=== PATIENT | female | born 1975 | race Caucasian/White ===

== ENCOUNTER → 2021-11-10 11:23 | Outpatient (CLI) | payer OTHER, SELFPAY ==
--- NOTE | 2021-11-10 11:33 | XR_ITS ---
FINAL REPORT CLINICAL HISTORY: .covid testing, cough FINDINGS: SINGLE VIEW CHEST The heart size is normal. The mediastinum is within normal limits. There is mild left lung basilar opacity. The right lung is clear. The bony thorax is intact. IMPRESSION: Left lung basilar opacity which may represent atelectasis or pneumonia. Reviewed, Interpreted and Dictated by Yonas Rizo III, MD Transcribed by Baldo Garces Authenticated by Yonas Rizo III, MD on 11/10/2021 01:50:26 PM [facility]
[2021-11-10 12:09] LABS: Adenovirus,PCR Not Detected (NotDetected); Bordetella Pertussis Not Detected (NotDetected); Chlamydophila Pneumoniae, PCR Not Detected (NotDetected); Coronavirus 19, PCR Not Detected (NotDetected); Coronavirus 229E Not Detected (NotDetected); Coronavirus NL63 Not Detected (NotDetected); Coronavirus OC43 Not Detected (NotDetected); Coronovirus HKU1,PCR Not Detected (NotDetected); Human Metapneumovirus Not Detected (NotDetected); Influenza A, PCR Not Detected (NotDetected); Influenza AH1, 2009 Not Detected (NotDetected); Influenza AH1, PCR Not Detected (NotDetected); Influenza AH3,PCR Not Detected (NotDetected); Influenza B, PCR Not Detected (NotDetected); Mycoplasma Pneumoniae, PCR Not Detected (NotDetected); Parainfluenza 1, PCR Not Detected (NotDetected); Parainfluenza 2, PCR Not Detected (NotDetected); Parainfluenza 3, PCR Not Detected (NotDetected); Respiratory Syncytial Virus Not Detected (NotDetected); Rhinovirus/Enterovirus Not Detected (NotDetected)
[2021-11-10 12:21] LABS: Strep Scrn Group A (Rapid) Negative (Negative)
[2021-11-10 12:46] LABS: Basophils # 0.1 K/mm3 (0-0.2); Basophils % 2.2 % (0.1-2.0); Eosinophils # 0.1 K/mm3 (0.0-0.4); Hematocrit 45.9 % (37.0-47.0); Hemoglobin 14.3 g/dL (12.2-16.2); Mean Corpuscular HGB Conc 31.1 g/dL (31.8-35.4); Mean Corpuscular Hemoglobin 29.6 pg (27.0-31.2); Mean Corpuscular Volume 95.2 fl (81-99); Monocytes # 0.3 K/mm3 (0.1-1.0); Monocytes % 4.3 % (1.7-9.3); Neutrophils # 3.7 K/mm3 (1.8-7.8); Neutrophils % 59.5 % (37.0-80.0); Platelet Count 345 K/mm3 (142-424); Red Blood Count 4.82 M/mm3 (4.20-5.40); Red Cell Distribution Width 14.7 % (11.5-17.5); White Blood Count 6.3 K/mm3 (4.8-10.8)
[2021-11-10 13:45] LABS: Parainfluenza 4, PCR Detected (NotDetected)
== END ==
PROVIDERS: PCP Nurse Practitioner; Visit Provider Nurse Practitioner
DX: Z20.822 Contact with and (suspected) exposure to COVID-19 (principal); B34.8 Other viral infections of unspecified site
CPT/HCPCS: 36415; 71045; 85025; 87430; 87581; 87632; 87798; C9803; U0003; U0005

== ENCOUNTER → 2022-09-14 09:33 | Outpatient (CLI) | payer OTHER, SELFPAY ==
[2022-09-14 17:28] LABS: Creatinine,Urine Random 64 mg/dL (Not Estab.)
[2022-09-14 17:31] LABS: Basophils % 0.5 % (0.1-2.0); Eosinophils # 0.1 K/mm3 (0.0-0.4); Eosinophils % 1.1 % (0.1-12.0); Hematocrit 45.4 % (37.0-47.0); Hemoglobin 14.4 g/dL (12.2-16.2); Lymphocytes # 2.3 K/mm3 (0.7-4.5); Lymphocytes % 27.7 % (10-50); Mean Corpuscular HGB Conc 31.8 g/dL (31.8-35.4); Mean Corpuscular Hemoglobin 29.9 pg (27.0-31.2); Mean Platelet Volume 8.3 fl (7.4-10.4); Microalbumin/Creatinine Ratio 13.1; Monocytes # 0.2 K/mm3 (0.1-1.0); Monocytes % 2.9 % (1.7-9.3); Neutrophils # 5.6 K/mm3 (1.8-7.8); Neutrophils % 67.8 % (37.0-80.0); Platelet Count 438 K/mm3 (142-424); Red Blood Count 4.83 M/mm3 (4.20-5.40); Red Cell Distribution Width 14.4 % (11.5-17.5); White Blood Count 8.3 K/mm3 (4.8-10.8)
[2022-09-14 17:43] LABS: Alanine Aminotransferase 17 U/L (12-78); Albumin Level 4.3 g/dl (3.5-5.0); Albumin/Globulin Ratio 1.7 (1.1-1.8); Alkaline Phosphatase 107 U/L (38-126); Aspartate Amino Transferase 22 U/L (14-36); Bilirubin,Total 0.5 mg/dl (0.2-1.3); Blood Urea Nitrogen 24 mg/dl (7-17); Calcium 9.5 mg/dl (8.4-10.2); Carbon Dioxide 24 mmol/L (22.0-30.0); Chloride 102 mmol/L (98-107); Chol/HDL Ratio 2.8 (1-3.5); Cholesterol 241 mg/dl (140-200); Estimated Glomerular Filt Rate 67 ml/min (>60); GFR (African American) 81 ML/MIN (>60); Globulin 2.6 g/dL (1.3-3.2); Glucose 191 mg/dl (74-100); HDL Cholesterol 87 mg/dl (40-60); Sodium 135 mmol/L (136-145); Total Protein,Serum 6.9 g/dl (6.3-8.2); Triglycerides 199 mg/dl (30-150); VLDL Cholesterol 40 mg/dL (0-40)
[2022-09-14 17:54] LABS: Direct LDL Cholesterol 118.64 mg/dL (100-129)
[2022-09-14 18:04] LABS: 25-OH Vitamin D, Total 27.8 ng/mL (30-100)
[2022-09-14 18:16] LABS: Thyroid Stimulating Hormone 0.06 uIU/mL (0.465-4.68)
[2022-09-14 18:35] LABS: Vitamin B12 620 pg/mL (239-931)
[2022-09-14 18:44] LABS: Anion Gap 13.7 mEq/L (5-15); Potassium 4.7 mmoL/L (3.5-5.1)
== END ==
PROVIDERS: PCP Nurse Practitioner; Visit Provider Nurse Practitioner
DX: E11.9 Type 2 diabetes mellitus without complications (principal); E78.5 Hyperlipidemia, unspecified; I10 Essential (primary) hypertension; E55.9 Vitamin D deficiency, unspecified; Z79.84 Long term (current) use of oral hypoglycemic drugs
CPT/HCPCS: 80053; 80061; 82043; 82306; 82570; 82607; 83036; 84443; 85025

== ENCOUNTER → 2022-09-27 12:27 | Outpatient (CLI) | payer OTHER, SELFPAY ==
--- NOTE | 2022-09-27 12:27 | US_ITS ---
FINAL REPORT CLINICAL HISTORY: low TSH FINDINGS: Limited sonographic images of the thyroid were obtained. The right lobe of the thyroid measures 5.0 x 1.2 x 1.0 cm. The left lobe of the thyroid measures 4.0 x 1.0 x 1.0 cm. The isthmus measures 0.21 cm. No mass or nodules are identified. IMPRESSION: Unremarkable thyroid ultrasound. Reviewed, Interpreted and Dictated by Yonas Rizo III, MD Transcribed by Mckenna Pozo Authenticated and [facility]
== END ==
PROVIDERS: PCP Nurse Practitioner; Visit Provider Nurse Practitioner
DX: R79.89 Other specified abnormal findings of blood chemistry (principal)
CPT/HCPCS: 76536

== ENCOUNTER → 2022-12-13 18:34 | Outpatient (CLI) | payer OTHER, SELFPAY ==
[2022-12-13 18:23] LABS: Alanine Aminotransferase 17 U/L (12-78); Albumin Level 3.8 g/dl (3.5-5.0); Anion Gap 11.2 mEq/L (5-15); Aspartate Amino Transferase 24 U/L (14-36); Bilirubin,Total 0.5 mg/dl (0.2-1.3); Blood Urea Nitrogen 21 mg/dl (7-17); Calcium 8.7 mg/dl (8.4-10.2); Carbon Dioxide 24 mmol/L (22.0-30.0); Chloride 103 mmol/L (98-107); Estimated Glomerular Filt Rate 67 ml/min (>60); GFR (African American) 81 ML/MIN (>60); Globulin 2.4 g/dL (1.3-3.2); Glucose 114 mg/dl (74-100); Potassium 5.2 mmoL/L (3.5-5.1); Sodium 133 mmol/L (136-145); Total Protein,Serum 6.2 g/dl (6.3-8.2)
[2022-12-13 18:24] LABS: Albumin/Globulin Ratio 1.6 (1.1-1.8); Alkaline Phosphatase 68 U/L (38-126); Chol/HDL Ratio 2.9 (1-3.5); Cholesterol 212 mg/dl (140-200); HDL Cholesterol 73 mg/dl (40-60); Triglycerides 125 mg/dl (30-150); VLDL Cholesterol 25 mg/dL (0-40)
[2022-12-13 18:30] LABS: Creatinine,Urine Random 66 mg/dL (Not Estab.)
[2022-12-13 18:34] LABS: Direct LDL Cholesterol 125.29 mg/dL (100-129); Microalbumin < 6.000 mg/L (0-16.7)
[2022-12-13 18:40] LABS: Free T4 (Free Thyroxine) 0.95 ng/dl (0.78-2.19)
[2022-12-13 18:54] LABS: Thyroid Stimulating Hormone 0.18 uIU/mL (0.465-4.68)
== END ==
PROVIDERS: PCP Nurse Practitioner; Visit Provider Nurse Practitioner
DX: E11.9 Type 2 diabetes mellitus without complications (principal); E55.9 Vitamin D deficiency, unspecified; E78.5 Hyperlipidemia, unspecified; I10 Essential (primary) hypertension; R79.89 Other specified abnormal findings of blood chemistry; Z79.84 Long term (current) use of oral hypoglycemic drugs
CPT/HCPCS: 80053; 80061; 82043; 82570; 84439; 84443; 84481

== ENCOUNTER → 2023-03-15 23:15 | Outpatient (CLI) | payer OTHER, SELFPAY ==
[2023-03-15 18:03] LABS: Alanine Aminotransferase 28 U/L (12-78); Albumin Level 3.9 g/dl (3.5-5.0); Albumin/Globulin Ratio 1.4 (1.1-1.8); Alkaline Phosphatase 81 U/L (38-126); Anion Gap 15.9 mEq/L (5-15); Aspartate Amino Transferase 30 U/L (14-36); Bilirubin,Total 0.6 mg/dl (0.2-1.3); Blood Urea Nitrogen 17 mg/dl (7-17); Calcium 8.7 mg/dl (8.4-10.2); Carbon Dioxide 25 mmol/L (22.0-30.0); Chloride 102 mmol/L (98-107); Chol/HDL Ratio 2.9 (1-3.5); Cholesterol 222 mg/dl (140-200); Estimated Glomerular Filt Rate 77 ml/min (>60); GFR (African American) 93 ML/MIN (>60); Globulin 2.7 g/dL (1.3-3.2); Glucose 105 mg/dl (74-100); HDL Cholesterol 77 mg/dl (40-60); Potassium 4.9 mmoL/L (3.5-5.1); Sodium 138 mmol/L (136-145); Total Protein,Serum 6.6 g/dl (6.3-8.2); Triglycerides 108 mg/dl (30-150); VLDL Cholesterol 22 mg/dL (0-40)
[2023-03-15 18:06] LABS: Hemoglobin A1C 6.1 % (4.0-6.0)
[2023-03-15 18:15] LABS: Direct LDL Cholesterol 118.32 mg/dL (100-129)
[2023-03-15 18:20] LABS: Free T4 (Free Thyroxine) 1.07 ng/dl (0.78-2.19)
[2023-03-15 18:21] LABS: 25-OH Vitamin D, Total 66.3 ng/mL (30-100)
[2023-03-15 18:34] LABS: Thyroid Stimulating Hormone 0.03 uIU/mL (0.465-4.68)
[2023-03-17 12:10] LABS: Triiodothyronine (T3) Free 2.4 pg/mL (2.0-4.4)
== END ==
PROVIDERS: PCP Nurse Practitioner; Visit Provider Nurse Practitioner
DX: E11.9 Type 2 diabetes mellitus without complications (principal); E55.9 Vitamin D deficiency, unspecified; E78.5 Hyperlipidemia, unspecified; I10 Essential (primary) hypertension; R79.89 Other specified abnormal findings of blood chemistry; Z79.84 Long term (current) use of oral hypoglycemic drugs
CPT/HCPCS: 80053; 80061; 82306; 83036; 84439; 84443; 84481

== ENCOUNTER 2024-02-02 18:00 | Outpatient (CLI) | payer OTHER, SELFPAY ==
[2024-02-02 17:46] LABS: Coronavirus 19, PCR Not Detected (NotDetected); Influenza A, PCR Not Detected (NotDetected); Influenza B, PCR Not Detected (NotDetected)
== END 2024-02-02 23:59 | disposition home or self-care (01) ==
LOC: LAB.DROPOF 02-03 13:10
PROVIDERS: PCP Nurse Practitioner; Visit Provider Nurse Practitioner
DX: J06.9 Acute upper respiratory infection, unspecified (principal); J02.9 Acute pharyngitis, unspecified; R09.81 Nasal congestion; R09.89 Other specified symptoms and signs involving the circulatory and respiratory systems; R06.2 Wheezing; R05.9 Cough, unspecified
CPT/HCPCS: 87636

== ENCOUNTER 2024-06-11 12:58 | Outpatient (CLI) | payer OTHER, SELFPAY ==
--- NOTE | 2024-06-11 12:59 | CT_ITS ---
FINAL REPORT TECHNIQUE: Axial CT images of the abdomen and pelvis were obtained before and after the administration of IV contrast. Oral contrast was administered.This study was performed with techniques to keep radiation doses as low as reasonably achievable (ALARA). Individualized dose reduction techniques using automated exposure control or adjustment of mA and/or kV according to the patient''s size were employed. CLINICAL HISTORY: abdominal pain, gastroenteritis FINDINGS: Abdomen: The lung bases are clear. The heart is normal in size. The liver has an unremarkable appearance, without evidence of mass or biliary duct dilatation. There is a large gallstone with marked gallbladder wall thickening and adjacent stranding consistent with acute cholecystitis. There is pericholecystic fluid. Stranding is seen adjacent to the hepatic flexure of the colon, favor secondary inflammation. The spleen is unremarkable. No adrenal masses present. The pancreas has an unremarkable appearance. There is moderate left renal scarring. The kidneys otherwise enhance normally. The aorta is normal in caliber. There is no free fluid or adenopathy. No mass or abnormal fluid collection is seen. There is a small hiatal hernia. Precontrast images demonstrate no evidence of nephrolithiasis. Pelvis: The appendix is partially visualized and appears normal. The urinary bladder is unremarkable. There is a small amount of pelvic free fluid which may be reactive. There is no evidence of mass or adenopathy. There is no evidence of bowel obstruction. Postoperative changes are noted of the right femur. IMPRESSION: Findings consistent with acute cholecystitis. Reviewed, Interpreted and Dictated by Yonas Rizo III, MD Transcribed by Sara Delgado Authenticated and [facility]
[2024-06-11 13:03] LABS: Bordetella Pertussis Not Detected (NotDetected); Chlamydophila Pneumoniae, PCR Not Detected (NotDetected); Coronavirus 19, PCR Not Detected (NotDetected); Coronavirus 229E Not Detected (NotDetected); Coronavirus NL63 Not Detected (NotDetected); Coronavirus OC43 Not Detected (NotDetected); Coronovirus HKU1,PCR Not Detected (NotDetected); Human Metapneumovirus Not Detected (NotDetected); Influenza A, PCR Not Detected (NotDetected); Influenza AH1, 2009 Not Detected (NotDetected); Influenza AH1, PCR Not Detected (NotDetected); Influenza AH3,PCR Not Detected (NotDetected); Influenza B, PCR Not Detected (NotDetected); Mycoplasma Pneumoniae, PCR Not Detected (NotDetected); Parainfluenza 1, PCR Not Detected (NotDetected); Parainfluenza 2, PCR Not Detected (NotDetected); Parainfluenza 3, PCR Not Detected (NotDetected); Parainfluenza 4, PCR Not Detected (NotDetected); Respiratory Syncytial Virus Not Detected (NotDetected); Rhinovirus/Enterovirus Not Detected (NotDetected)
[2024-06-11 13:37] LABS: Basophils # 0.1 K/mm3 (0-0.2); Basophils % 0.4 % (0.1-2.0); Hematocrit 43.6 % (37.0-47.0); Hemoglobin 13.9 g/dL (12.2-16.2); Lymphocytes % 11.9 % (10-50); Mean Corpuscular HGB Conc 31.8 g/dL (31.8-35.4); Mean Corpuscular Hemoglobin 30.8 pg (27.0-31.2); Mean Corpuscular Volume 96.7 fl (81-99); Mean Platelet Volume 7.3 fl (7.4-10.4); Monocytes # 0.5 K/mm3 (0.1-1.0); Monocytes % 2.9 % (1.7-9.3); Neutrophils % 84.8 % (37.0-80.0); Platelet Count 426 K/mm3 (142-424); Red Blood Count 4.51 M/mm3 (4.20-5.40); Red Cell Distribution Width 13.8 % (11.5-17.5); White Blood Count 16.5 K/mm3 (4.8-10.8)
[2024-06-11 13:45] LABS: MANUAL DIFFERENTIAL MANUAL DIFFERENTIAL (MANUAL DIFF)
[2024-06-11 13:46] LABS: Alanine Aminotransferase 92 U/L (12-78); Albumin Level 4.2 g/dl (3.5-5.0); Albumin/Globulin Ratio 1.3 (1.1-1.8); Alkaline Phosphatase 78 U/L (38-126); Amylase 99 U/L (30-110); Anion Gap 11.9 mEq/L (5-15); Aspartate Amino Transferase 51 U/L (14-36); Bilirubin,Total 0.8 mg/dl (0.2-1.3); Blood Urea Nitrogen 12 mg/dl (7-17); Calcium 8.8 mg/dl (8.4-10.2); Carbon Dioxide 26 mmol/L (22.0-30.0); Chloride 105 mmol/L (98-107); Estimated Glomerular Filt Rate 53 ml/min (>60); GFR (African American) 64 ML/MIN (>60); Globulin 3.2 g/dL (1.3-3.2); Glucose 161 mg/dl (74-100); Lipase 106 U/L (23-300); Potassium 3.9 mmoL/L (3.5-5.1); Sodium 139 mmol/L (136-145); Total Protein,Serum 7.4 g/dl (6.3-8.2)
[2024-06-11 13:52] LABS: C-Reactive Protein 59.1 mg/L (0-4)
[2024-06-11] MEDS: SODIUM CHLORIDE 0.9% 10ML SYR (RAD ONLY) 10 ML IV (14:03)
[2024-06-11] MEDS: IOPAMIDOL-370 (76%);100ML BOTTLE 75 ML IV (14:04)
[2024-06-11 14:15] LABS: Hypochromasia 1+; Lymphocytes % 17 % (10-50); Monocytes % 4 % (2-9); Neutrophils % 79 % (42-76); Polychromasia 1+; Total Cells Counted 100
[2024-06-11 14:17] LABS: Platelet Estimate Slight Increase
[2024-06-11 14:51] LABS: Erythrocyte Sedimentation Rate 19 mm/hr (0-20)
[2024-06-13 12:34] LABS: Adenovirus,PCR Not Detected (NotDetected)
== END 2024-06-11 23:59 | disposition home or self-care (01) ==
LOC: RAD 12:59
PROVIDERS: PCP Nurse Practitioner; Visit Provider Nurse Practitioner
DX: K52.9 Noninfective gastroenteritis and colitis, unspecified (principal); R10.9 Unspecified abdominal pain; J06.9 Acute upper respiratory infection, unspecified
CPT/HCPCS: 36415; 74178; 80053; 82150; 83690; 85007; 85025; 85027; 85651; 86140; 87265; 87486; 87581; 87632; 87635; Q9967

== ENCOUNTER 2024-06-11 16:41 | Observation (INO) | payer OTHER, SELFPAY ==
[2024-06-11] VITALS (8 sets, daily range): BP systolic 135–157; BP diastolic 77–86; PULSE 55–80; RESP 16–18; TEMP 36.6–36.9; O2SAT 95–100; BMI 23.2; BMI 22.9
--- NOTE | 2024-06-11 17:14 | ED_ITS ---
<Statement entered by Steve Bui MD - 06/11/24 21:51> I was consulted by the JASON, and we discussed the complexity of the problems being addressed. I approved the treatment and management plan for this patient's care in the emergency department, thus performing a substantive portion of the medical decision making. Steve Bui MD Discharge Plan Disposition Patient Disposition: Admitted Condition: Fair Clinical Impressions Clinical Impression: Acute calculous cholecystitis Sepsis Qualifiers: Sepsis type: sepsis due to unspecified organism Sepsis acute organ dysfunction status: without acute organ dysfunction Qualified Code(s): A41.9 - Sepsis, unspecified organism Discharge ED Provider: Steve Bui General Adult HPI General Chief complaint: Abdominal Pain Stated complaint: sent by DR Tidwell- gall bladder issues Time Seen by Provider: 06/11/24 16:52 Mode of Arrival: Ambulatory Source of Information: Patient Limitations: No Limitations Description of Symptoms (Recalled from ER Triage Doc. by RN): pt sent from pcp office for further evaluation. pts states that she had blood work and ct scan today for pcp office. reports pt was called back and told to come to ED for evaluation. History of Present Illness HPI narrative: Patient presents for right upper quadrant abdominal pain. Patient has been having right upper quadrant abdominal pain and anorexia since Tuesday. She went to her PCP today who ordered a CT scan and labs. Labs showed an elevated white count and transaminitis but no elevated bilirubin and CT scan showed acute cholecystitis with stone in the gallbladder but no biliary ductal dilatation. Patient subsequently was sent to the ER for further evaluation and care Related Data Home Medications ?Medication ?Instructions ?Recorded ?Confirmed methylphenidate HCl 10 mg tablet 10 mg PO TID 09/14/22 06/11/24 norethindrone 1 mg-ethinyl 1 tab PO DAILY 09/14/22 06/11/24 estradiol 20 mcg (21)-iron 75 mg (7) tablet (June FE 10/22 (28)) cholecalciferol (vitamin D3) 125 125 mcg PO DAILY 06/11/24 06/11/24 mcg (5,000 unit) tablet empagliflozin 12.5 mg-metformin ER 2 tab PO DAILY 06/11/24 06/11/24 1,000 mg tablet,extended rel 24 hr (Synjardy XR) losartan 25 mg tablet 25 mg PO DAILY 06/11/24 06/11/24 ondansetron 4 mg disintegrating 4 mg PO QID 06/11/24 06/11/24 tablet sulfacetamide sodium 10 % eye drops 1 drp Eye-Both QID 06/11/24 06/11/24 tirzepatide 5 mg/0.5 mL 5 mg SQ WEEKLY 06/11/24 06/11/24 subcutaneous pen injector (Sandra) Previous Rx's ?Medication ?Instructions ?Recorded hyoscyamine sulfate 0.125 mg tablet 0.125 mg PO QID PRN diarrhea or 06/11/24 abdominal cramping #30 tabs promethazine 25 mg tablet 25 mg PO Q6H PRN nausea and 06/11/24 vomiting #20 tabs Allergies Allergy/AdvReac Type Severity Reaction Status Date / Time No Known Allergies Allergy Verified 06/11/24 09:33 [facility] Disclaimer: The information contained in this section may have been updated after the patient was seen, as this information can be updated by other users. Medical History Abdominal pain Acute gastroenteritis Vitamin D deficiency Low TSH level Narcolepsy Hyperlipidemia Essential hypertension Type 2 diabetes mellitus without complications Family History Other Diabetes Social History (Updated 06/11/24 @ 18:41 by Patrizia Warner RN) Smoking Status: Never smoker alcohol intake: never substance use type: denies use current occupational status: employed Travel in the last 8 weeks: None ROS Obtained: Yes Systems reviewed as appropriate & no additional complaints except as documented Physical Exam General General appearance: alert and in no apparent distress Respiratory Respiratory exam: Present normal lung sounds bilaterally Cardiovascular Cardiovascular exam: Present regular rate Neurological Exam Neurological exam: Present alert and oriented X3 Medical Decision Making Medical Records Medical records reviewed: Yes I reviewed the patient's medical records. Lester Inquiry Pt receiving controlled substance: No Vital Signs: 06/11/24 16:42 06/11/24 16:50 06/11/24 17:01 Temperature 98.4 F Temperature Source Oral Pulse Rate 63 62 Pulse Rate [Left Radial] 63 Respiratory Rate 16 Blood Pressure 149/86 H 157/83 H Blood Pressure [Right Arm] 149/86 H Blood Pressure Mean [Right Arm] 107 Blood Pressure Source [Right Arm] 02 Sat by Pulse Oximetry 97 100 100 Oxygen Delivery Method Room Air Room Air Room Air 06/11/24 17:30 06/11/24 18:38 06/11/24 18:54 Temperature 97.9 F Temperature Source Oral Pulse Rate 61 Pulse Rate [Left Radial] 80 Respiratory Rate 18 Blood Pressure 156/85 H Blood Pressure [Right Arm] 138/81 Blood Pressure Mean [Right Arm] 100 Blood Pressure Source [Right Arm] Automatic Cuff 02 Sat by Pulse Oximetry 100 100 Oxygen Delivery Method Room Air Room Air Room Air Lab Data Lab results reviewed: Yes I reviewed the patient's lab results. Lab Results 06/11/24 16:52: WBC 15.8 H, RBC 4.81, Hgb 14.7, Hct 46.5, MCV 96.8, MCH 30.6, M CHC 31.6 L, RDW 13.9, Plt Count 394, MPV 7.7, Neut % (Auto) 85.5 H, Lymph % (Auto) 11.3, [place] % (Auto) 2.8, Eos % (Auto) 0.1, Baso % (Auto) 0.2, Neut # (Auto) 13.6 H, Lymph # (Auto) 1.8, [place] # (Auto) 0.4, Eos # (Auto) 0.0, Baso # (Auto) 0.0, Sodium 137, Potassium 3.7, Chloride 102, Carbon Dioxide 26, Anion Gap 12.7, BUN 12, Creatinine 1.10 H, Estimated Creat Clear 53, Estimated GFR 53 L, Est GFR ( Amer) 64, Glucose 149 H, Calcium 8.8, Total Bilirubin 0.8, A ST 61 H, ALT 113 H, Alkaline Phosphatase 74, Total Protein 8.1, Albumin 4.3, G lobulin 3.8 H, Albumin/Globulin Ratio 1.1, Lipase 68, Procalcitonin 0.084 06/11/24 16:52 06/11/24 16:52 Orders (Tests/Meds): ED MEDICATIONS Generic Name Dose Route Start Last Admin Trade Name Freq PRN Reason Stop Dose Admin Acetaminophen 1,000 mg 06/11/24 18:11 Acetaminophen 325mg Tab PO 07/11/24 18:10 Q6HP PRN Fever or Mild Pain (1-3) Hydrocodone Bitart/Acetaminophen 1 tab 06/11/24 18:11 Hydrocodone/Apap 5/325 Mg Tablet PO 07/11/24 18:10 Q4HP PRN Moderate Pain (4-6) Hydromorphone HCl 2 mg 06/11/24 18:11 Hydromorphone 2mg/Ml Syringe IV 07/11/24 18:10 Q4HP PRN Severe Pain (7-10) Sodium Chloride 1,000 mls @ 125 mls/hr 06/11/24 18:15 06/11/24 18:48 Sod Chlor 0.9% 1000ml Bag IV 07/11/24 18:14 125 mls/hr .Q8H ALEXIA Administration Piperacillin Sod/Tazobactam 50 mls @ 100 mls/hr 06/11/24 18:30 06/11/24 18:35 Sod 3.375 gm/ Sodium Chloride IV 06/21/24 18:29 Not Given Q6H ALEXIA Ondansetron HCl 4 mg 06/11/24 18:11 Ondansetron 4mg/2ml Vial IV 07/11/24 18:10 Q8HP PRN Nausea Pantoprazole Sodium 40 mg 06/11/24 18:30 06/11/24 18:48 Pantoprazole 40mg Tablet PO 07/11/24 18:29 40 mg DAILY ALEXIA Administration Sodium Chloride 10 ml 06/11/24 18:11 Sodium Chloride 0.9% 10ml Flush Syringe IV 07/11/24 18:10 NEEDED PRN Maintain IV Site Discontinued Medications Generic Name Dose Route Start Last Admin Trade Name Freq PRN Reason Stop Dose Admin Acetaminophen 1,000 mg 06/11/24 17:22 06/11/24 17:38 Acetaminophen 1,000mg/100ml Vial IV 06/11/24 17:23 1,000 mg ONCE ONE Administration Lactated Ringer's 1,000 mls @ 999 mls/hr 06/11/24 17:22 06/11/24 17:38 Lactated Ringer's 1000 Ml Bag IV 06/11/24 18:22 999 mls/hr .Q1H1M ONE Administration Piperacillin Sod/Tazobactam 50 mls @ 100 mls/hr 06/11/24 17:30 06/11/24 18:10 Sod 3.375 gm/ Sodium Chloride IV 06/11/24 17:59 100 mls/hr ONCE ONE Administration Ketorolac Tromethamine 15 mg 06/11/24 17:22 06/11/24 17:38 Ketorolac 30mg/Ml Vial IV 06/11/24 17:23 15 mg ONCE ONE Administration Ondansetron HCl 4 mg 06/11/24 17:22 06/11/24 17:38 Ondansetron 4mg/2ml Vial IV 06/11/24 17:23 4 mg ONCE ONE Administration ORDERS Category Date Time Status CBC w/Auto Diff [Complete Blood Count Auto Diff] Stat Lab 06/11/24 16:52 Completed CMP [Comprehensive Metabolic Panel] Stat Lab 06/11/24 16:52 Completed Lipase Stat Lab 06/11/24 16:52 Completed Procalcitonin Stat Lab 06/11/24 16:52 Completed Blood Culture Stat Micro 06/11/24 18:05 Received Medical Decision Narrative: In summary patient is a 48-year-old female who presents to the emergency department for evaluation of moderate quadrant abdominal pain. Patient is hemodynamically stable upon arrival, afebrile. Physical exam is tender to palpation in the right upper quadrant without rebound or guarding or rigidity. Bowel sounds normoactive.. Differential diagnosis includes cute cholecystitis versus acalculous cholecystitis versus biliary ductal dilatation etc. Initial workup will be conducted with hematologic labs blood cultures.. Initial interventions include crystalloid bolus Zosyn Toradol Tylenol Zofran. Initial workup reviewed by me confirms sepsis without septic shock, transaminitis without hyperbilirubinemia and a normal lipase, and her CT scan read earlier shows calculus cholecystitis without biliary ductal dilatation. Given this I had interactive discussion of outpatient management with hospital medicine and she will be admitted for further evaluation and care. Critical Care Critical Care Time Critical Care Time: No
--- NOTE | 2024-06-11 17:34 | PC.NURSE ---
HS aware of admission
[2024-06-11] MEDS: KETOROLAC 30MG/ML VIAL 15 MG IV (17:38)
[2024-06-11] MEDS: ACETAMINOPHEN 1,000MG/100ML VIAL 1000 MG IV (17:38)
[2024-06-11] MEDS: ONDANSETRON 4MG/2ML VIAL 4 MG IV (17:38)
[2024-06-11] MEDS: LACTATED RINGERS 1000ML 1,000 ML 999 ML IV (17:38)
[2024-06-11 17:41] LABS: Basophils % 0.2 % (0.1-2.0); Eosinophils % 0.1 % (0.1-12.0); Hematocrit 46.5 % (37.0-47.0); Hemoglobin 14.7 g/dL (12.2-16.2); Lymphocytes # 1.8 K/mm3 (0.7-4.5); Lymphocytes % 11.3 % (10-50); Mean Corpuscular HGB Conc 31.6 g/dL (31.8-35.4); Mean Corpuscular Hemoglobin 30.6 pg (27.0-31.2); Mean Corpuscular Volume 96.8 fl (81-99); Mean Platelet Volume 7.7 fl (7.4-10.4); Monocytes # 0.4 K/mm3 (0.1-1.0); Monocytes % 2.8 % (1.7-9.3); Neutrophils # 13.6 K/mm3 (1.8-7.8); Neutrophils % 85.5 % (37.0-80.0); Platelet Count 394 K/mm3 (142-424); Red Blood Count 4.81 M/mm3 (4.20-5.40); Red Cell Distribution Width 13.9 % (11.5-17.5); White Blood Count 15.8 K/mm3 (4.8-10.8)
[2024-06-11 17:47] LABS: Alanine Aminotransferase 113 U/L (12-78); Albumin Level 4.3 g/dl (3.5-5.0); Albumin/Globulin Ratio 1.1 (1.1-1.8); Alkaline Phosphatase 74 U/L (38-126); Anion Gap 12.7 mEq/L (5-15); Aspartate Amino Transferase 61 U/L (14-36); Bilirubin,Total 0.8 mg/dl (0.2-1.3); Blood Urea Nitrogen 12 mg/dl (7-17); Calcium 8.8 mg/dl (8.4-10.2); Carbon Dioxide 26 mmol/L (22.0-30.0); Chloride 102 mmol/L (98-107); Creatinine Clearance Estimated 53 mL/min (50-200); Estimated Glomerular Filt Rate 53 ml/min (>60); GFR (African American) 64 ML/MIN (>60); Globulin 3.8 g/dL (1.3-3.2); Glucose 149 mg/dl (74-100); Lipase 68 U/L (23-300); Potassium 3.7 mmoL/L (3.5-5.1); Sodium 137 mmol/L (136-145); Total Protein,Serum 8.1 g/dl (6.3-8.2)
--- NOTE | 2024-06-11 17:53 | PC.NURSE ---
report called to bienvenido on second floor
[2024-06-11 18:03] LABS: Procalcitonin 0.084 ng/mL (0.0-2.0)
[2024-06-11] MEDS: PIPERCILLIN/TAZO 3.375 GM in 0.9 % SODIUM CHLORIDE 50 ML IV (18:10)
--- NOTE | 2024-06-11 18:19 | EXP.HP ---
History of Present Illness *Admission Date: 06/11/24 *Reason for visit:: Abdominal pain *History of present illness: This is a 48-year-old female that presents to [facility] emergency department with concerns of abdominal pain. She was evaluated by her primary care doctor earlier this morning for abdominal pain since Tuesday not improving with home care and recent urgent treatment center evaluation. She reports nausea and vomiting with decreased p.o. intake. She started having diarrhea characterizes brown and watery yesterday. She has identified no associated fever, chills, rashes, confusion, hematemesis, melena or hematochezia. She characterizes the pain as sharp and piercing to her back. It is rated as greater than 7 on a 1-10 pain scale. She reports no prior history of symptomatology. In the ED her CBC identified a leukocytosis and her AST and ALT were marginally elevated. A CT scan of the abdomen with contrast identified a large gallstone with gallbladder thickening and adjacent stranding with pericholecystic fluid consistent with acute cholecystitis. [facility] Medical History (Updated 06/11/24 @ 17:30 by DENISE Wright) Abdominal pain Acute gastroenteritis Vitamin D deficiency Low TSH level Narcolepsy Hyperlipidemia Essential hypertension Type 2 diabetes mellitus without complications Family History Other Diabetes Social History Smoking Status: Never smoker alcohol intake: never substance use type: denies use current occupational status: employed Travel in the last 8 weeks: None Review of Systems Review of Systems Review of systems:: pertinent systems reviewed and negative unless documented below Meds Home Medications and Allergies Home Medications ?Medication ?Instructions ?Recorded ?Confirmed ?Type methylphenidate HCl 10 mg tablet 10 mg PO TID 09/14/22 06/11/24 History norethindrone 1 mg-ethinyl 1 tab PO DAILY 09/14/22 06/11/24 History estradiol 20 mcg (21)-iron 75 mg (7) tablet (10/22 ()) cholecalciferol (vitamin D3) 125 See Rx Instructions .Route 05/04/24 06/11/24 Rx mcg (5,000 unit) tablet .COMPLEX #90 tabs empagliflozin 12.5 mg-metformin ER See Rx Instructions .Route 05/04/24 06/11/24 Rx 1,000 mg tablet,extended rel 24 hr .COMPLEX #60 tabs (Synjardy XR) losartan 25 mg tablet See Rx Instructions .Route 05/14/24 06/11/24 Rx .COMPLEX #90 tabs hyoscyamine sulfate 0.125 mg tablet 0.125 mg PO QID PRN diarrhea or 06/11/24 06/11/24 Rx abdominal cramping #30 tabs ondansetron 4 mg disintegrating mg PO PRN 06/11/24 06/11/24 History tablet promethazine 25 mg tablet 25 mg PO Q6H PRN nausea and 06/11/24 06/11/24 Rx vomiting #20 tabs sulfacetamide sodium 10 % eye drops drp Eye-Both 06/11/24 06/11/24 History New Prescriptions to Start Prescriptions: Allergies Allergy/AdvReac Type Severity Reaction Status Date / Time No Known Allergies Allergy Verified 06/11/24 09:33 Exam Data for Last 24 hours Vital signs and Labs for Last 24 Hours: Temp Pulse Resp BP Pulse Ox O2 Del Method 98.4 F 61 16 156/85 H 100 Room Air 06/11/24 16:42 06/11/24 17:30 06/11/24 16:42 06/11/24 17:30 06/11/24 17:30 06/11/24 17:30 Laboratory Results - last 24 hr 06/11/24 16:52: WBC 15.8 H, RBC 4.81, Hgb 14.7, Hct 46.5, MCV 96.8, MCH 30.6, MCHC 31.6 L, RDW 13.9, Plt Count 394, MPV 7.7, Neut % (Auto) 85.5 H, Lymph % (Auto) 11.3, [place] % (Auto) 2.8, Eos % (Auto) 0.1, Baso % (Auto) 0.2, Neut # (Auto) 13.6 H, Lymph # (Auto) 1.8, [place] # (Auto) 0.4, Eos # (Auto) 0.0, Baso # (Auto) 0.0 I & O for Last 24 hours: Intake & Output 06/08/24 06/09/24 06/10/24 06/11/24 23:59 23:59 23:59 23:59 Weight 53.977 kg Constitutional Constitutional: no acute distress and cooperative *Routine HEENT Exam Head: Present normocephalic and atraumatic Eye: Present EOMI and PERRL ENT: Present mucous membranes moist *Routine Neck Exam Neck: Present trachea midline; Absent JVD or lymphadenopathy *Routine Respiratory Exam Respiratory: Present CTA bilaterally, normal respiratory effort and symmetric chest movement *Routine Cardiovascular Exam Cardiovascular: Present RRR *Routine Abdominal Exam Abdominal: Present soft, normoactive bowel sounds and tenderness; Absent distended, rebound or guarding *Routine Rectal Exam Rectal:: deferred *Routine Genitalia Exam Genitalia:: deferred *Routine Extremities Exam Extremities: Present full ROM, pulses intact and normal capillary refill; Absent edema *Routine Skin Exam Skin: Present intact and warm; Absent rash *Routine Neurological Exam Neurological: Present alert, oriented X3, moving all extremities, vision grossly intact, hearing grossly intact and normal speech; Absent sensory deficit or motor deficit Routine Psychiatric Exam Psychiatric: Present normal affect, normal thought process, cooperative, good insight and good judgment Assessment and Plan *Assessment and plan (1) Acute calculous cholecystitis: Status: Acute Category: Medical Code(s): K80.00 - Calculus of gallbladder with acute cholecystitis without obstruction Plan 48-year-old female that presents to the ED with right upper quadrant abdominal pain and imaging identifies concerns with acute cholecystitis. Problems addressed as follows: Acute calculus cholecystitis General Surgery consultation N.p.o. past midnight IV fluid resuscitation Trending labs and inflammatory markers Antiemetic therapy Pain control Parenterally administered controlled substance for comfort care IV Zosyn The length of stay for this patient will be 2 midnights or greater due to above diagnoses.
--- NOTE | 2024-06-11 18:30 | PC.NURSE ---
arrived to floor by w/c from ED
[2024-06-11] MEDS: 0.9 % SODIUM CHLORIDE 1000ML 1,000 ML 125 ML IV (18:48)
[2024-06-11] MEDS: PANTOPRAZOLE 40MG TABLET 40 MG PO (18:48)
--- NOTE | 2024-06-11 18:49 | PC.NURSE ---
PER FELIX HOLD OFF ON FSBG TILL PT COMES BACK FROM SURGERY TOMORROW.
[2024-06-11 18:50] LABS: Activated Partial Thrombo Time 30.8 seconds (22.8-30.6); INR 0.94 (0.9-1.1); Prothrombin Time 10.6 seconds (10.1-12.5)
[2024-06-11 19:22] LABS: HCG,Quantitative < 2 mIU/ml (0-5.42)
[2024-06-12] VITALS (21 sets, daily range): BP systolic 111–152; BP diastolic 65–92; PULSE 60–106; RESP 14–20; TEMP 36.4–43; O2SAT 97–100; BMI 23.1
[2024-06-12] MEDS: PIPERCILLIN/TAZO 3.375 GM in 0.9 % SODIUM CHLORIDE 50 ML IV ×4 (00:03→23:56)
[2024-06-12] MEDS: 0.9 % SODIUM CHLORIDE 1000ML 1,000 ML 125 ML IV ×2 (03:43→17:49)
--- NOTE | 2024-06-12 05:25 | PC.NURSE ---
Patient is alert and oriented x4. Patient was observed to have eyes closed, respirations even and unlabored on room air, and no apparent distress throughout the night. Patient has not had any complaints of pain, nausea, or any other abnormalities this shift. Patient's lung sounds were clear, S1/S2 heart sounds could be heard, and bowel sounds were active upon auscultation. Patient's helped her with a shower earlier this shift. Patient verbalized understanding of NPO after midnight, and remained NPO for general surgery consult expected for this morning. Patient was given antibiotics per MAR this shift and currently has normal saline 0.9% running at 125 mL/hr. Patient has been able to ambulate to the bathroom on her own to void and tolerates it well. At this time, patient is resting supine in bed with her at bedside. Patient does not have any complaints at this time. No acute changes noted. Call light within reach.
[2024-06-12 06:15] LABS: Basophils % 0.4 % (0.1-2.0); Eosinophils # 0.1 K/mm3 (0.0-0.4); Eosinophils % 1.1 % (0.1-12.0); Hematocrit 36.9 % (37.0-47.0); Lymphocytes % 19.5 % (10-50); Mean Corpuscular HGB Conc 31.5 g/dL (31.8-35.4); Mean Corpuscular Hemoglobin 30.6 pg (27.0-31.2); Mean Corpuscular Volume 97.2 fl (81-99); Mean Platelet Volume 8.1 fl (7.4-10.4); Monocytes # 0.4 K/mm3 (0.1-1.0); Monocytes % 4.1 % (1.7-9.3); Neutrophils # 7.8 K/mm3 (1.8-7.8); Neutrophils % 74.8 % (37.0-80.0); Platelet Count 292 K/mm3 (142-424); Red Cell Distribution Width 14.1 % (11.5-17.5); White Blood Count 10.4 K/mm3 (4.8-10.8)
[2024-06-12 06:21] LABS: Anion Gap 8.7 mEq/L (5-15); Blood Urea Nitrogen 12 mg/dl (7-17); Calcium 7.2 mg/dl (8.4-10.2); Carbon Dioxide 21 mmol/L (22.0-30.0); Chloride 110 mmol/L (98-107); Creatinine Clearance Estimated 48 mL/min (50-200); Estimated Glomerular Filt Rate 48 ml/min (>60); GFR (African American) 58 ML/MIN (>60); Glucose 88 mg/dl (74-100); Potassium 3.7 mmoL/L (3.5-5.1); Sodium 136 mmol/L (136-145)
[2024-06-12 06:26] LABS: Hemoglobin 11.6 g/dL (12.2-16.2)
--- NOTE | 2024-06-12 06:42 | ECG_ITS ---
APPROVED REPORT Exam: Resting ECG HR:62 bpm ECG Measurements Heart Rate 62 AXES [place] 174 P 50 QRSd 81 QRS 50 QT 425 T 33 QTc 430 Conclusion SINUS RHYTHM NORMAL ECG UNCONFIRMED REPORT Electronically signed by : Dick Cassidy MD 06/13/2024 08:25:34
--- NOTE | 2024-06-12 07:27 | P.CONS_ITS ---
History of Present Illness *Admission Date: 06/11/24 *Reason for visit:: Acute cholecystitis *History of present illness: This is a 48-year-old female seen in consultation from the primary service for evaluation regarding acute calculus cholecystitis. Please see HPI forwarded from admission H&P below. Forwarded from admission H&P: This is a 48-year-old female that presents to [facility] emergency department with concerns of abdominal pain. She was evaluated by her primary care doctor earlier this morning for abdominal pain since Tuesday not improving with home care and recent urgent treatment center evaluation. She reports nausea and vomiting with decreased p.o. intake. She started having diarrhea characterizes brown and watery yesterday. She has identified no associated fever, chills, rashes, confusion, hematemesis, melena or hematochezia. She characterizes the pain as sharp and piercing to her back. It is rated as greater than 7 on a 1-10 pain scale. She reports no prior history of symptomatology. In the ED her CBC identified a leukocytosis and her AST and ALT were marginally elevated. A CT scan of the abdomen with contrast identified a large gallstone with gallbladder thickening and adjacent stranding with pericholecystic fluid consistent with acute cholecystitis. [facility] Disclaimer: The information contained in this section may have been updated after the patient was seen, as this information can be updated by other users. Medical History Abdominal pain Acute gastroenteritis Vitamin D deficiency Low TSH level Narcolepsy Hyperlipidemia Essential hypertension Type 2 diabetes mellitus without complications Family History Other Diabetes Social History (Updated 06/11/24 @ 18:41 by Patrizia Warner, BRETT) Smoking Status: Never smoker alcohol intake: never substance use type: denies use current occupational status: employed Travel in the last 8 weeks: None Meds Home Medications and Allergies Home Medications ?Medication ?Instructions ?Recorded ?Confirmed ?Type methylphenidate HCl 10 mg tablet 10 mg PO TID 09/14/22 06/11/24 History norethindrone 1 mg-ethinyl 1 tab PO DAILY 09/14/22 06/11/24 History estradiol 20 mcg (21)-iron 75 mg (7) tablet (Junel FE 10/22 (28)) cholecalciferol (vitamin D3) 125 125 mcg PO DAILY 06/11/24 06/11/24 History mcg (5,000 unit) tablet empagliflozin 12.5 mg-metformin ER 2 tab PO DAILY 06/11/24 06/11/24 History 1,000 mg tablet,extended rel 24 hr (Synjardy XR) hyoscyamine sulfate 0.125 mg tablet 0.125 mg PO QID PRN diarrhea or 06/11/24 06/11/24 Rx abdominal cramping #30 tabs losartan 25 mg tablet 25 mg PO DAILY 06/11/24 06/11/24 History ondansetron 4 mg disintegrating 4 mg PO QID 06/11/24 06/11/24 History tablet promethazine 25 mg tablet 25 mg PO Q6H PRN nausea and 06/11/24 06/11/24 Rx vomiting #20 tabs sulfacetamide sodium 10 % eye drops 1 drp Eye-Both QID 06/11/24 06/11/24 History tirzepatide 5 mg/0.5 mL 5 mg SQ WEEKLY 06/11/24 06/11/24 History subcutaneous pen injector (Sandra) New Prescriptions to Start Prescriptions: Allergies Allergy/AdvReac Type Severity Reaction Status Date / Time No Known Allergies Allergy Verified 06/11/24 09:33 Exam (Inpt) Vital signs and Labs for Last 24 Hours: Temp Pulse Resp BP Pulse Ox O2 Del Method 98.0 F 63 16 127/73 99 Room Air 06/12/24 04:00 06/12/24 04:00 06/12/24 04:00 06/12/24 04:00 06/12/24 04:00 06/12/24 05:00 Laboratory Results - last 24 hr 06/11/24 16:52: WBC 15.8 H, RBC 4.81, Hgb 14.7, Hct 46.5, MCV 96.8, MCH 30.6, M CHC 31.6 L, RDW 13.9, Plt Count 394, MPV 7.7, Neut % (Auto) 85.5 H, Lymph % (Auto) 11.3, Howell % (Auto) 2.8, Eos % (Auto) 0.1, Baso % (Auto) 0.2, Neut # (Auto) 13.6 H, Lymph # (Auto) 1.8, Howell # (Auto) 0.4, Eos # (Auto) 0.0, Baso # (Auto) 0.0, PT 10.6, INR 0.94, APTT 30.8 H, Sodium 137, Potassium 3.7, Chloride 102, Carbon Dioxide 26, Anion Gap 12.7, BUN 12, Creatinine 1.10 H, Estimated Creat Clear 53, Estimated GFR 53 L, Est GFR ( Amer) 64, Glucose 149 H, Calcium 8.8, Total Bilirubin 0.8, AST 61 H, ALT 113 H, Alkaline Phosphatase 74, Total Protein 8.1, Albumin 4.3, Globulin 3.8 H, Albumin/Globulin Ratio 1.1, Lipase 68, Procalcitonin 0.084, HCG, Quant < 2 06/12/24 05:24: WBC 10.4 D, RBC 3.80 L, Hgb 11.6 L D, Hct 36.9 L, MCV 97.2, MCH 30.6, MCHC 31.5 L, RDW 14.1, Plt Count 292 D, MPV 8.1, Neut % (Auto) 74.8, Lymph % (Auto) 19.5, Howell % (Auto) 4.1, Eos % (Auto) 1.1, Baso % (Auto) 0.4, Neut # (Auto) 7.8, Lymph # (Auto) 2.0, Howell # (Auto) 0.4, Eos # (Auto) 0.1, Baso # (Auto) 0.0, Sodium 136, Potassium 3.7, Chloride 110 H, Carbon Dioxide 21 L, Anion Gap 8.7, BUN 12, Creatinine 1.20 H, Estimated Creat Clear 48, Estimated GFR 48 L, Est GFR ( Amer) 58 L, Glucose 88 D, Calcium 7.2 L I & O for Labs for Last 24 Hours: Intake & Output 06/09/24 06/10/24 06/11/24 06/12/24 11:59 11:59 11:59 11:59 Intake Total 814 / 814 Output Total 0 / 0 Balance 814 / 814 Weight 117 lb 7.996 oz Constitutional: no acute distress Respiratory: Absent respiratory distress Cardiac: Absent Tachycardia GI: Present soft and tenderness Results Labs 06/12/24 05:24 06/12/24 05:24 Labs: Laboratory Results - last 24 hr 06/11/24 16:52: WBC 15.8 H, RBC 4.81, Hgb 14.7, Hct 46.5, MCV 96.8, MCH 30.6, M CHC 31.6 L, RDW 13.9, Plt Count 394, MPV 7.7, Neut % (Auto) 85.5 H, Lymph % (Auto) 11.3, Howell % (Auto) 2.8, Eos % (Auto) 0.1, Baso % (Auto) 0.2, Neut # (Auto) 13.6 H, Lymph # (Auto) 1.8, Howell # (Auto) 0.4, Eos # (Auto) 0.0, Baso # (Auto) 0.0, PT 10.6, INR 0.94, APTT 30.8 H, Sodium 137, Potassium 3.7, Chloride 102, Carbon Dioxide 26, Anion Gap 12.7, BUN 12, Creatinine 1.10 H, Estimated Creat Clear 53, Estimated GFR 53 L, Est GFR ( Amer) 64, Glucose 149 H, Calcium 8.8, Total Bilirubin 0.8, AST 61 H, ALT 113 H, Alkaline Phosphatase 74, Total Protein 8.1, Albumin 4.3, Globulin 3.8 H, Albumin/Globulin Ratio 1.1, Lipase 68, Procalcitonin 0.084, HCG, Quant < 2 06/12/24 05:24: WBC 10.4 D, RBC 3.80 L, Hgb 11.6 L D, Hct 36.9 L, MCV 97.2, MCH 30.6, MCHC 31.5 L, RDW 14.1, Plt Count 292 D, MPV 8.1, Neut % (Auto) 74.8, Lymph % (Auto) 19.5, Howell % (Auto) 4.1, Eos % (Auto) 1.1, Baso % (Auto) 0.4, Neut # (Auto) 7.8, Lymph # (Auto) 2.0, Howell # (Auto) 0.4, Eos # (Auto) 0.1, Baso # (Auto) 0.0, Sodium 136, Potassium 3.7, Chloride 110 H, Carbon Dioxide 21 L, Anion Gap 8.7, BUN 12, Creatinine 1.20 H, Estimated Creat Clear 48, Estimated GFR 48 L, Est GFR ( Amer) 58 L, Glucose 88 D, Calcium 7.[address] scan - abdomen: report reviewed and image reviewed CT scan - pelvis: report reviewed and image reviewed Assessment and Plan *Assessment and plan (1) Acute calculous cholecystitis: Status: Acute Category: Medical Code(s): K80.00 - Calculus of gallbladder with acute cholecystitis without obstruction Plan: Continue overall management as per primary service Laparoscopic cholecystectomy later today I have discussed the risks and benefits including, but not limited to: Bleeding Infection Damage to surrounding tissue Inherent risks of sedation The patient agrees to proceed.
--- NOTE | 2024-06-12 07:50 | HMH.PHAINT1 ---
Pharmacy Intervention Comments: HOME MEDICATION LIST VERIFIED USING OUTPATIENT PHARMACY LIST AND PT INTERVIEW
--- NOTE | 2024-06-12 11:41 | PC.NURSE ---
pt off floor for surgery
[2024-06-12] MEDS: CEFAZOLIN 1GM VIAL 1 GM (13:05)
--- NOTE | 2024-06-12 13:30 | P.PNANES_ITS ---
[facility] Disclaimer: The information contained in this section may have been updated after the patient was seen, as this information can be updated by other users. Medical History Abdominal pain Acute gastroenteritis Vitamin D deficiency Low TSH level Narcolepsy Hyperlipidemia Essential hypertension Type 2 diabetes mellitus without complications Family History Other Diabetes Social History (Updated 06/11/24 @ 18:41 by Patrizia Warner RN) Smoking Status: Never smoker alcohol intake: never substance use type: denies use current occupational status: employed Travel in the last 8 weeks: None [facility] Anesthesia Checklist Patient Identification Patient Identification: Verbal (Name & ) Structural Data Admitted From: Inpatient Planned Operative Procedure/s: sagar marsh Consent for Planned Operative Procedure(s) Verified: Yes NPO Status Verified Time NPO: 00:00 Airway Assessment Mallampati Score:: Class II C-Spine Mobility Assessed: Yes TMJ Mobility Assessed: Yes Dentition: Good Dentition Neurological Assessment Level of Consciousness: Awake, Alert and Appropriate Anesthesia Plan Anesthesia Risk discussed: Yes Anesthesia Plan: Verified ASA Class: II Anesthesia Type: General
[2024-06-12] MEDS: LIDOCAINE 1% 20ML MDV 20 ML (13:38)
--- NOTE | 2024-06-12 15:05 | P.OP_ITS ---
Date of procedure: 06/12/24 Pre-op Diagnosis:: Acute calculus cholecystitis Post-op Diagnosis:: Acute gangrenous calculus cholecystitis Procedure performed:: Laparoscopic cholecystectomy Surgeon:: Jony Crooks MD SR. STRATEGIC SOURCING MANAGER:: Caty Cem Anesthesia: GETA Estimated blood loss (mL): 25 Operative findings:: Severe gallbladder distention Wall thickening Patchy gangrenous changes of gallbladder wall Profound soft tissue thickening and fat stranding with adjacent adhesions to surrounding structures including stomach, small bowel, and right colon Dome down approach utilized secondary to above findings Operative note:: After informed consent was obtained, the patient was taken to the operating room and placed in the supine position. General anesthesia was induced and the abdomen was prepped and draped in a sterile fashion. After infiltration with local anesthetic an infraumbilical incision was made. A Veress needle was placed in position. The abdomen was insufflated. A 5 mm optical trocar was placed in position. Under direct visualization, a 12 mm trocar was placed in the subxiphoid position and 2 additional 5 mm trocars were placed in the right upper quadrant. The gallbladder was elevated up and over the liver margin. Patchy gangrenous necrosis noted. Profound soft tissue thickening and fat stranding was noted. Adjacent adhesion to surrounding structures including stomach, small bowel, and right colon confirmed. No obvious injury to these structures was noted as a combination of blunt dissection and harmonic abiodun was utilized to separate the tissue. An extremely thickened portion of inflammatory tissue along the infundibulum was noted. This did not appear to be duct or vessel; however, the decision was made to place metallic clips for control prior to transection with harmonic abiodun distally. Continued dissection revealed significant inflammation and an extremely enlarged node of Calot. Metallic clips were placed at the margin of the cystic artery and it was transected distally. The decision was made to then proceed with a dome down approach secondary to these findings. A window was made posterior to the infundibulum. Harmonic abiodun was then utilized to free the gallbladder from the liver margin. As stated above the gallbladder was gangrenous with patchy necrotic changes. Endoloops (x 2) were then placed at the infundibulum prior to transection with harmonic abiodun distally. The gallbladder was placed in a retrieval bag and removed through the subxiphoid trocar site. The right upper quadrant was thoroughly irrigated. No active bleeding or bile leak was noted. Fascia at the subxiphoid trocar site was reapproximated utilizing 0 Ethibond. The remaining trocars were removed. All wounds were irrigated and skin was closed with 4-0 Monocryl in a mattress fashion to facilitate hemostasis. The patient's anesthetic agents were reversed and extubation was completed prior to transfer to recovery in stable condition. Condition: stable Disposition: PACU Specimens:: Gallbladder Complications:: No immediate
--- NOTE | 2024-06-12 15:20 | P.PNANES_ITS ---
[facility] Anesthesia Record Part I Anesthesia Record I Intake, IV Amount: 1,400 Hydration: Adequate Estimated blood loss (mL): 25 Urine output (mL): 0 Blood Products used (#): none Blood Pressure: 118/65 SaO2: 100 Pulse Rate: 106 Airway Patency: Patent Respiratory Rate: 20 Temperature: 98.2 F Patient is:: Awake (Talking) and Stable Stable to PACU at:: 15:15
--- NOTE | 2024-06-12 16:25 | P.PN_ITS ---
Subjective *Date: 06/12/24 *Time: 16:25 Interval history: The patient is seen and evaluated at bedside today. She is accompanied by her . I am accompanied by nursing staff. Nursing staff report that she remains afebrile with stable vital signs and saturating appropriately on room air. She is n.p.o. and due to go to surgery today. Exam Data for Last 24 hours Vital signs and Labs for Last 24 Hours: Temp Pulse Resp BP Pulse Ox O2 Del Method 97.9 F 72 18 137/78 99 Room Air 06/12/24 15:45 06/12/24 15:45 06/12/24 15:45 06/12/24 15:45 06/12/24 15:45 06/12/24 15:45 Laboratory Results - last 24 hr 06/11/24 16:52: WBC 15.8 H, RBC 4.81, Hgb 14.7, Hct 46.5, MCV 96.8, MCH 30.6, MCHC 31.6 L, RDW 13.9, Plt Count 394, MPV 7.7, Neut % (Auto) 85.5 H, Lymph % (Auto) 11.3, Sebastian % (Auto) 2.8, Eos % (Auto) 0.1, Baso % (Auto) 0.2, Neut # (Auto) 13.6 H, Lymph # (Auto) 1.8, Sebastian # (Auto) 0.4, Eos # (Auto) 0.0, Baso # (Auto) 0.0, PT 10.6, INR 0.94, APTT 30.8 H, Sodium 137, Potassium 3.7, Chloride 102, Carbon Dioxide 26, Anion Gap 12.7, BUN 12, Creatinine 1.10 H, Estimated Creat Clear 53, Estimated GFR 53 L, Est GFR ( Amer) 64, Glucose 149 H, Calcium 8.8, Total Bilirubin 0.8, AST 61 H, ALT 113 H, Alkaline Phosphatase 74, Total Protein 8.1, Albumin 4.3, Globulin 3.8 H, Albumin/Globulin Ratio 1.1, Lipase 68, Procalcitonin 0.084, HCG, Quant < 2 06/12/24 05:24: WBC 10.4 D, RBC 3.80 L, Hgb 11.6 L D, Hct 36.9 L, MCV 97.2, MCH 30.6, MCHC 31.5 L, RDW 14.1, Plt Count 292 D, MPV 8.1, Neut % (Auto) 74.8, Lymph % (Auto) 19.5, Sebastian % (Auto) 4.1, Eos % (Auto) 1.1, Baso % (Auto) 0.4, Neut # (Auto) 7.8, Lymph # (Auto) 2.0, Sebastian # (Auto) 0.4, Eos # (Auto) 0.1, Baso # (Auto) 0.0, Sodium 136, Potassium 3.7, Chloride 110 H, Carbon Dioxide 21 L, Anion Gap 8.7, BUN 12, Creatinine 1.20 H, Estimated Creat Clear 48, Estimated GFR 48 L, Est GFR ( Amer) 58 L, Glucose 88 D, Calcium 7.2 L I & O for Last 24 hours: Intake & Output 06/09/24 06/10/24 06/11/24 06/12/24 23:59 23:59 23:59 23:59 Intake Total 4 / 2214 Output Total 0 / 0 Balance 2213 / 221 Weight 53.297 kg 53.297 kg Constitutional Constitutional: no acute distress and cooperative *Routine HEENT Exam Head: Present normocephalic and atraumatic Eye: Present EOMI and PERRL ENT: Present mucous membranes moist *Routine Neck Exam Neck: Absent JVD or lymphadenopathy *Routine Respiratory Exam Respiratory: Present CTA bilaterally, normal respiratory effort and symmetric chest movement *Routine Cardiovascular Exam Cardiovascular: Present RRR *Routine Abdominal Exam Abdominal: Present soft, normoactive bowel sounds and tenderness *Routine Extremities Exam Extremities: Present full ROM and pulses intact; Absent edema *Routine Skin Exam Skin: Present warm; Absent rash *Routine Neurological Exam Neurological: Present alert, oriented X3, moving all extremities, vision grossly intact, hearing grossly intact and normal speech; Absent sensory deficit or motor deficit Routine Psychiatric Exam Psychiatric: Present normal affect, normal thought process, cooperative and good insight Assessment and Plan *Assessment and plan (1) Acute calculous cholecystitis: Status: Acute Category: Medical Code(s): K80.00 - Calculus of gallbladder with acute cholecystitis without obstruction Plan 48-year-old female that presents to the ED with right upper quadrant abdominal pain and imaging identifies concerns with acute cholecystitis. Problems addressed as follows: Acute calculus cholecystitis General Surgery consultation N.p.o. IV fluid resuscitation Trending labs and inflammatory markers Antiemetic therapy Pain control Parenterally administered controlled substance for comfort care IV Zosyn The patient is hospitalized day 1. We appreciate rural health consultant evaluation, planned surgical intervention today and postoperative recommendations. Case management is assisting with discharge needs. Barriers to discharge currently include planned surgical procedure today (laparoscopic cholecystectomy) and postprocedural care. Expected day of discharge 06/13/2024.
[2024-06-12] MEDS: HYDROMORPHONE 2MG/ML SYRINGE 2 MG IV (16:56)
--- NOTE | 2024-06-12 18:37 | PC.NURSE ---
pt has x4 lap sites to abd, dsg cdi and no issues. c/o pain in upper abd.treated pain with dilaudid and it made pt dizzy and very drowsy, but still arousable. made dr spann aware and he suggest to half the dose as needed. vss. is at bedside, no needs at this time
[2024-06-12 18:39] LABS: POC Glucose,Bedside 103 (70-110)
[2024-06-12] MEDS: PANTOPRAZOLE 40MG TABLET 40 MG PO (20:18)
[2024-06-12] MEDS: HYDROCODONE/APAP 5/325 MG TABLET 1 TAB PO (21:22)
[2024-06-13] VITALS: BP 100/63; PULSE 81; RESP 18; TEMP 37.1; O2SAT 97
[2024-06-13] MEDS: 0.9 % SODIUM CHLORIDE 1000ML 1,000 ML 125 ML IV (02:16)
[2024-06-13] MEDS: HYDROCODONE/APAP 5/325 MG TABLET 1 TAB PO (02:16)
[2024-06-13 04:00] VITALS: BP 91/56; PULSE 71; RESP 16; TEMP 36.7; O2SAT 98; BMI 25.6
[2024-06-13] MEDS: PIPERCILLIN/TAZO 3.375 GM in 0.9 % SODIUM CHLORIDE 50 ML IV (05:42)
[2024-06-13 05:49] LABS: Hematocrit 31.8 % (37.0-47.0); Hemoglobin 10.1 g/dL (12.2-16.2); Lymphocytes # 1.1 K/mm3 (0.7-4.5); Lymphocytes % 11.5 % (10-50); Mean Corpuscular HGB Conc 31.8 g/dL (31.8-35.4); Mean Corpuscular Hemoglobin 31.3 pg (27.0-31.2); Mean Corpuscular Volume 98.3 fl (81-99); Mean Platelet Volume 8.5 fl (7.4-10.4); Monocytes # 0.3 K/mm3 (0.1-1.0); Monocytes % 3.2 % (1.7-9.3); Neutrophils # 7.8 K/mm3 (1.8-7.8); Neutrophils % 85.2 % (37.0-80.0); Platelet Count 273 K/mm3 (142-424); Red Blood Count 3.23 M/mm3 (4.20-5.40); Red Cell Distribution Width 13.9 % (11.5-17.5); White Blood Count 9.1 K/mm3 (4.8-10.8)
[2024-06-13 05:52] LABS: Alanine Aminotransferase 79 U/L (12-78); Albumin Level 2.7 g/dl (3.5-5.0); Albumin/Globulin Ratio 1.1 (1.1-1.8); Alkaline Phosphatase 50 U/L (38-126); Aspartate Amino Transferase 56 U/L (14-36); Bilirubin,Total 0.6 mg/dl (0.2-1.3); Blood Urea Nitrogen 14 mg/dl (7-17); Calcium 6.4 mg/dl (8.4-10.2); Carbon Dioxide 17 mmol/L (22.0-30.0); Chloride 113 mmol/L (98-107); Creatinine Clearance Estimated 64 mL/min (50-200); Estimated Glomerular Filt Rate 59 ml/min (>60); GFR (African American) 71 ML/MIN (>60); Globulin 2.5 g/dL (1.3-3.2); Glucose 86 mg/dl (74-100); Sodium 136 mmol/L (136-145); Total Protein,Serum 5.2 g/dl (6.3-8.2)
[2024-06-13 05:54] LABS: MANUAL DIFFERENTIAL MANUAL DIFFERENTIAL (MANUAL DIFF)
--- NOTE | 2024-06-13 06:03 | PC.NURSE ---
Pt is A&Ox4. Pt has complained of moderate to mild pain this shift and has been treated per MAR. Pt 4 incision sites remain dressed and unsaturated. Pt has been up to BR x2 and tolerated ambulation well. Pt denies needs and pain at this time.
[2024-06-13 06:41] LABS: POC Glucose,Bedside 86 (70-110)
[2024-06-13 07:37] LABS: Lymphocytes % 9 % (10-50); Neutrophils % 91 % (42-76); Total Cells Counted 100
[2024-06-13 07:40] VITALS: BP 104/67; PULSE 69; RESP 17; TEMP 36.7; O2SAT 99
[2024-06-13 07:52] LABS: Platelet Estimate Normal; RBC Morphology Normal
--- NOTE | 2024-06-13 08:30 | P.PN_ITS ---
Subjective Patient reports: feels better Exam Data for Last 24 hours Vital signs and Labs for Last 24 Hours: Temp Pulse Resp BP Pulse Ox O2 Del Method 98.1 F 69 17 104/67 L 99 Room Air 06/13/24 07:40 06/13/24 07:40 06/13/24 07:40 06/13/24 07:40 06/13/24 07:40 06/13/24 07:40 Laboratory Results - last 24 hr 06/12/24 15:14: POC Glucose 86 06/12/24 18:31: POC Glucose 103 06/13/24 05:25: WBC 9.1, RBC 3.23 L, Hgb 10.1 L, Hct 31.8 L, MCV 98.3, MCH 31.3 H, MCHC 31.8, RDW 13.9, Plt Count 273, MPV 8.5, Neut % (Auto) 85.2 H, Lymph % (Auto) 11.5, Cla[place]orne % (Auto) 3.2, Eos % (Auto) 0.0 L, Baso % (Auto) 0.0 L, Neut # (Auto) 7.8, Lymph # (Auto) 1.1, [place]orne # (Auto) 0.3, Eos # (Auto) 0.0, Baso # (Auto) 0.0, Total Counted 100, Neutrophils % (Manual) 91 H, Lymphocytes % (Manual) 9 L, Platelet Estimate Normal, RBC Morphology Normal, Sodium 136, Potassium 4.0, Chloride 113 H, Carbon Dioxide 17 L, Anion Gap 10.0, BUN 14, Creatinine 1.00, Estimated Creat Clear 64, Estimated GFR 59, Est GFR ( Amer) 71 D, Glucose 86, Calcium 6.4 L, Total Bilirubin 0.6, AST 56 H, ALT 79 H D, Alkaline Phosphatase 50, Total Protein 5.2 L D, Albumin 2.7 L, Globulin 2.5, Albumin/Globulin Ratio 1.1 I & O for Last 24 hours: Intake & Output 06/10/24 06/11/24 06/12/24 06/13/24 11:59 11:59 11:59 11:59 Intake Total 814 / 814 2985 / 2985 Output Total 0 / 0 0 / 0 Balance 814 / 814 2985 / 2985 Weight 117 lb 7.996 oz 130 lb 7 oz Microbiology Reports for the Last 24 Hours: Microbiology 06/11/24 18:05 Blood Blood Culture - Preliminary NO GROWTH AFTER 24 HOURS 06/11/24 17:40 Blood Blood Culture - Preliminary NO GROWTH AFTER 24 HOURS Constitutional Constitutional: no acute distress *Routine Respiratory Exam Respiratory: Absent respiratory distress *Routine Cardiovascular Exam Cardiovascular: Absent tachycardia *Routine Abdominal Exam Comments: dressings intact Progress Note: A&P Assessment and plan (1) Acute calculous cholecystitis: Status: Acute Assessment and plan: OK from surgical standpoint for discharge home with close outpatient follow-up
--- NOTE | 2024-06-13 10:36 | EXP.DC.SUM ---
General Admission date:: 06/11/24 Discharge date: 06/13/24 HPI HPI HPI: This is a 48-year-old female that presents to [facility] emergency department with concerns of abdominal pain. She was evaluated by her primary care doctor earlier this morning for abdominal pain since Tuesday not improving with home care and recent urgent treatment center evaluation. She reports nausea and vomiting with decreased p.o. intake. She started having diarrhea characterizes brown and watery yesterday. She has identified no associated fever, chills, rashes, confusion, hematemesis, melena or hematochezia. She characterizes the pain as sharp and piercing to her back. It is rated as greater than 7 on a 1-10 pain scale. She reports no prior history of symptomatology. In the ED her CBC identified a leukocytosis and her AST and ALT were marginally elevated. A CT scan of the abdomen with contrast identified a large gallstone with gallbladder thickening and adjacent stranding with pericholecystic fluid consistent with acute cholecystitis. Hospital Course Hospital Course Hospital Course: The patient was admitted to the [facility] floor with surgical consultation. Imaging, labs, cultures and inflammatory markers were assessed and trended. She tolerated her IV antibiotic therapy with no adverse events. She underwent laparoscopic cholecystectomy on 06/12/2024. Postoperatively she tolerated p.o. intake with effective flatus. Her remained at bedside. She ambulated with no assistance. She identified improvement and requested to be discharged home. She will be discharged home with oral antibiotic therapy, instructions on surgical wound care, avoiding driving while taking narcotic therapy and lifting restrictions. She should follow-up with her PCP and general surgeon as scheduled. I spent 35 minutes in [id number] time with the patient, at bedside and nursing staff (Katherine) concerning the discharge process. We discussed the admitting diagnoses and hospital course. We discussed identified improvement and the patient's desire to be discharged. We reviewed inpatient studies and imaging. The patient voiced understanding on the importance of follow-up with her primary care provider and general surgeon. The patient plans to be compliant with the medication regimen prescribed and follow-up appointments. She understands that she can return to the emergency department with any sudden changes or concerns. Exam Data for Last 24 hours Vital signs and Labs for Last 24 Hours: Temp Pulse Resp BP Pulse Ox O2 Del Method 98.1 F 69 17 104/67 L 99 Room Air 06/13/24 07:40 06/13/24 07:40 06/13/24 07:40 06/13/24 07:40 06/13/24 07:40 06/13/24 08:51 Laboratory Results - last 24 hr 06/12/24 15:14: POC Glucose 86 06/12/24 18:31: POC Glucose 103 06/13/24 05:25: WBC 9.1, RBC 3.23 L, Hgb 10.1 L, Hct 31.8 L, MCV 98.3, MCH 31.3 H, MCHC 31.8, RDW 13.9, Plt Count 273, MPV 8.5, Neut % (Auto) 85.2 H, Lymph % (Auto) 11.5, Stokes % (Auto) 3.2, Eos % (Auto) 0.0 L, Baso % (Auto) 0.0 L, Neut # (Auto) 7.8, Lymph # (Auto) 1.1, Stokes # (Auto) 0.3, Eos # (Auto) 0.0, Baso # (Auto) 0.0, Total Counted 100, Neutrophils % (Manual) 91 H, Lymphocytes % (Manual) 9 L, Platelet Estimate Normal, RBC Morphology Normal, Sodium 136, Potassium 4.0, Chloride 113 H, Carbon Dioxide 17 L, Anion Gap 10.0, BUN 14, Creatinine 1.00, Estimated Creat Clear 64, Estimated GFR 59, Est GFR ( Amer) 71 D, Glucose 86, Calcium 6.4 L, Total Bilirubin 0.6, AST 56 H, ALT 79 H D, Alkaline Phosphatase 50, Total Protein 5.2 L D, Albumin 2.7 L, Globulin 2.5, Albumin/Globulin Ratio 1.1 I & O for Last 24 hours: Intake & Output 06/10/24 06/11/24 06/12/24 06/13/24 23:59 23:59 23:59 23:59 Intake Total 1435 / 5888 1105 / 1105 Output Total 0 / 0 0 / 0 Balance 2694 / 3796 1105 / 1105 Weight 53.297 kg 53.297 kg 59.165 kg Microbiology Reports for the Last 24 Hours: Microbiology 06/11/24 18:05 Blood Blood Culture - Preliminary NO GROWTH AFTER 24 HOURS 06/11/24 17:40 Blood Blood Culture - Preliminary NO GROWTH AFTER 24 HOURS Constitutional Constitutional: no acute distress and cooperative *Routine HEENT Exam Head: Present normocephalic and atraumatic Eye: Present EOMI and PERRL ENT: Present mucous membranes moist *Routine Neck Exam Neck: Absent JVD or lymphadenopathy *Routine Respiratory Exam Respiratory: Present CTA bilaterally, normal respiratory effort and symmetric chest movement *Routine Cardiovascular Exam Cardiovascular: Present RRR *Routine Abdominal Exam Abdominal: Present soft and normoactive bowel sounds *Routine Extremities Exam Extremities: Present full ROM and pulses intact; Absent edema *Routine Skin Exam Skin: Present warm; Absent rash *Routine Neurological Exam Neurological: Present alert, oriented X3, moving all extremities, vision grossly intact, hearing grossly intact and normal speech; Absent sensory deficit or motor deficit Routine Psychiatric Exam Psychiatric: Present normal affect, normal thought process, cooperative and good insight Results Data Completed and Pending Labs on day of discharge: Labs from last 24 hours 06/13/24 06/12/24 06/12/24 05:25 18:31 15:14 WBC 9.1 RBC 3.23 L Hgb 10.1 L Hct 31.8 L MCV 98.3 MCH 31.3 H MCHC 31.8 RDW 13.9 Plt Count 273 MPV 8.5 Neut % (Auto) 85.2 H Lymph % (Auto) 11.5 Stokes % (Auto) 3.2 Eos % (Auto) 0.0 L Baso % (Auto) 0.0 L Neut # (Auto) 7.8 Lymph # (Auto) 1.1 Stokes # (Auto) 0.3 Eos # (Auto) 0.0 Baso # (Auto) 0.0 Total Counted 100 Neutrophils % (Manual) 91 H Lymphocytes % (Manual) 9 L Platelet Estimate Normal RBC Morphology Normal Sodium 136 Potassium 4.0 Chloride 113 H Carbon Dioxide 17 L Anion Gap 10.0 BUN 14 Creatinine 1.00 Estimated Creat Clear 64 Estimated GFR 59 Est GFR ( Amer) 71 D Glucose 86 POC Glucose 103 86 Calcium 6.4 L Total Bilirubin 0.6 AST 56 H ALT 79 H D Alkaline Phosphatase 50 Total Protein 5.2 L D Albumin 2.7 L Globulin 2.5 Albumin/Globulin Ratio 1.1 Preliminary micro results at discharge 06/11/24 18:05 Blood Culture - Preliminary Blood NO GROWTH AFTER 24 HOURS 06/11/24 17:40 Blood Culture - Preliminary Blood NO GROWTH AFTER 24 HOURS DS: Diagnosis Discharge Diagnosis (1) Acute calculous cholecystitis: Status: Acute Code(s): K80.00 - Calculus of gallbladder with acute cholecystitis without obstruction Meds Home Medications and Allergies Home Medications ?Medication ?Instructions ?Recorded ?Confirmed ?Type methylphenidate HCl 10 mg tablet 10 mg PO TID 09/14/22 06/11/24 History norethindrone 1 mg-ethinyl 1 tab PO DAILY 09/14/22 06/11/24 History estradiol 20 mcg (21)-iron 75 mg (7) tablet (10/22 (28)) cholecalciferol (vitamin D3) 125 125 mcg PO DAILY 06/11/24 06/11/24 History mcg (5,000 unit) tablet empagliflozin 12.5 mg-metformin ER 2 tab PO DAILY 06/11/24 06/11/24 History 1,000 mg tablet,extended rel 24 hr (Synjardy XR) hyoscyamine sulfate 0.125 mg tablet 0.125 mg PO QID PRN diarrhea or 06/11/24 06/11/24 Rx abdominal cramping #30 tabs losartan 25 mg tablet 25 mg PO DAILY 06/11/24 06/11/24 History ondansetron 4 mg disintegrating 4 mg PO QID 06/11/24 06/11/24 History tablet promethazine 25 mg tablet 25 mg PO Q6H PRN nausea and 06/11/24 06/11/24 Rx vomiting #20 tabs sulfacetamide sodium 10 % eye drops 1 drp Eye-Both QID 06/11/24 06/11/24 History tirzepatide 5 mg/0.5 mL 5 mg SQ WEEKLY 06/11/24 06/11/24 History subcutaneous pen injector (Mounjaro) amoxicillin 875 mg-potassium 1 tab PO BID #14 tabs 06/13/24 Rx clavulanate 125 mg tablet hydrocodone 5 mg-acetaminophen 325 1 tab PO Q4HP PRN Moderate Pain 06/13/24 Rx mg tablet (4-6) #12 tabs New Prescriptions to Start Prescriptions: hydrocodone-acetaminophen Emeric,Leighton amoxicillin-pot clavulanate Emeric,Leighton Allergies Allergy/AdvReac Type Severity Reaction Status Date / Time No Known Allergies Allergy Verified 06/11/24 09:33 Discharge Plan Disposition Patient Disposition: Home, Self-Care Condition: Good Follow up Plan Follow up with: Susie Tidwell APRN [Primary Care Provider] - 06/19/24 8:30 am Jony Crooks MD [Staff Physician] - 06/20/24 1:30 pm Prescriptions/Medication Reconciliation: New hydrocodone-acetaminophen 5-325 mg Tablet 1 tab PO Q4HP PRN (Reason: Moderate Pain (4-6)) Qty: 12 0RF amoxicillin-pot clavulanate 875-125 mg tablet 1 tab PO BID Qty: 14 0RF Continued norethindrone-e.estradiol-iron [10/22 (28)] 1 mg-20 mcg (21)/75 mg (7) tablet 1 tab PO DAILY methylphenidate HCl 10 mg tablet 10 mg PO TID ondansetron 4 mg tablet,disintegrating 4 mg PO QID sulfacetamide sodium 10 % drops 1 drp Eye-Both QID hyoscyamine sulfate 0.125 mg tablet 0.125 mg PO QID PRN (Reason: diarrhea or abdominal cramping) Qty: 30 0RF promethazine 25 mg tablet 25 mg PO Q6H PRN (Reason: nausea and vomiting) Qty: 20 0RF losartan 25 mg tablet 25 mg PO DAILY Rx Instructions: TAKE 1 TABLET BY MOUTH EVERY DAY FOR 90 DAYS cholecalciferol (vitamin D3) 125 mcg (5,000 unit) tablet 125 mcg PO DAILY Rx Instructions: TAKE 1 TABLET ORALLY ONCE DAILY Synjardy XR 12.5-1,000 mg tablet, IR - ER, biphasic 24hr 2 tab PO DAILY Rx Instructions: TAKE 2 TABLETS ORALLY DAILY FOR 30 DAYS Mounjaro 5 mg/0.5 mL pen injector 5 mg SQ WEEKLY Patient Comments: SUBCUTANEOUS (INJECT UNDER THE SKIN) 5 MG ONCE A WEEK. Problem Reconciliation Problems Reviewed?: Yes Patient Discharge Instructions ACTIVITY: Ambulate as tolerated and No heavy lifting DIET: advance to your usual diet Additional Instructions: Remove dressings and shower on , June 14, 2024 Patient Instructions: DI for Surgical Site Infection, DI for Sepsis -- Adult, DI for Cholecystitis, DI for Laparoscopic Cholecystectomy Print Language: [place] Providers Primary Care Provider: Susie Tidwell Admit Provider: Leighton Bey Attending Provider: Leighton Bey
[2024-06-13 22:41] LABS: POC Glucose,Bedside 111 (70-110)
[2024-06-13 22:41] LABS: POC Glucose,Bedside 81 (70-110)
--- NOTE | 2024-06-14 10:09 | EXP.ANES.II ---
[facility] Anesthesia Record Part II Anesthesia Record Part II Discharge Time: 15:45 Destination: [facility] PACU nurse assessment reviewed?: Yes Patient Condition:: Good Anesthesia Complications:: None Swallowing reflex intact?: Yes Airway Patency: Patent Cyanosis?: No Blood Pressure: 118/65 SaO2: 100 Respiratory Rate: 14 Pulse Rate: 106 Temperature: 98.2 F Mental Status: Alert & Oriented Pain level:: 0 Nausea and/or vomitting:: None Intake, IV Amount: 1,400 Hydration: Adequate
[2024-06-14 10:10] VITALS: BP 118/65; PULSE 106; RESP 14; TEMP 36.8; O2SAT 100
--- NOTE | 2024-06-14 11:13 | CARE MANAGER ---
Contacted patient related to hospital discharge. She states that she is doing well. She has medications and is aware of follow up appointments. Reports no bowel movement, but is having gas. Encouraged her to monitor and call if doesn't happen soon or starts having abdominal pain, etc. BRETT Mccloud
== END 2024-06-13 11:02 | disposition home or self-care (01) ==
LOC: ER 17:30 → 2ND 17:53
PROVIDERS: Physician Assistant; Surgery; Admitting Provider Family Medicine; Emergency Provider Emergency Medicine; PCP Nurse Practitioner; Visit Provider Family Medicine
PROC: 0FT44ZZ Resection of Gallbladder, Percutaneous Endoscopic Approach (ICD-10-PCS; CPT 47562; principal; 2024-06-12 12:30)
DX: K80.00 Calculus of gallbladder with acute cholecystitis without obstruction (principal); K82.A1 Gangrene of gallbladder in cholecystitis; R10.11 Right upper quadrant pain; R11.2 Nausea with vomiting, unspecified; D72.829 Elevated white blood cell count, unspecified; E78.5 Hyperlipidemia, unspecified; I10 Essential (primary) hypertension; E11.9 Type 2 diabetes mellitus without complications; G47.419 Narcolepsy without cataplexy; Z79.85 Long-term (current) use of injectable non-insulin antidiabetic drugs
CPT/HCPCS: 47562; 36415; 80048; 80053; 82962; 83690; 84145; 84702; 85007; 85025; 85027; 85610; 85730; 87040; 93005; 99285; G0378; J0131; J1100; J1170; J1885; J2250; J2405; J2543; J2710; J3010; J7030; J7120

== ENCOUNTER 2024-06-15 13:30 | Outpatient (CLI) | payer OTHER, SELFPAY | END 2024-06-15 23:59 | disposition home or self-care (01) | LOC: LAB.DROPOF 06-18 10:59 | PROVIDERS: PCP Nurse Practitioner Family; Visit Provider Nurse Practitioner Family | DX: R31.9 Hematuria, unspecified (principal) | CPT/HCPCS: 87086 ==

== ENCOUNTER 2024-07-16 09:57 | Outpatient (CLI) | payer OTHER, SELFPAY ==
[2024-07-16 18:33] LABS: Basophils % 0.5 % (0.1-2.0); Eosinophils # 0.1 K/mm3 (0.0-0.4); Hematocrit 42.3 % (37.0-47.0); Hemoglobin 13.5 g/dL (12.2-16.2); Lymphocytes # 1.8 K/mm3 (0.7-4.5); Lymphocytes % 25.7 % (10-50); Mean Corpuscular HGB Conc 31.8 g/dL (31.8-35.4); Mean Corpuscular Hemoglobin 30.8 pg (27.0-31.2); Mean Corpuscular Volume 96.7 fl (81-99); Mean Platelet Volume 7.9 fl (7.4-10.4); Monocytes # 0.2 K/mm3 (0.1-1.0); Monocytes % 2.3 % (1.7-9.3); Neutrophils % 70.6 % (37.0-80.0); Platelet Count 330 K/mm3 (142-424); Red Blood Count 4.38 M/mm3 (4.20-5.40); Red Cell Distribution Width 13.7 % (11.5-17.5); White Blood Count 7.1 K/mm3 (4.8-10.8)
[2024-07-16 18:36] LABS: Albumin Level 4.3 g/dl (3.5-5.0); Chloride 105 mmol/L (98-107)
[2024-07-16 18:37] LABS: Creatinine,Urine Random 96 mg/dL (Not Estab.); Potassium 4.9 mmoL/L (3.5-5.1); Sodium 135 mmol/L (136-145)
[2024-07-16 18:39] LABS: Alanine Aminotransferase 24 U/L (12-78); Albumin/Globulin Ratio 1.7 (1.1-1.8); Alkaline Phosphatase 60 U/L (38-126); Anion Gap 10.9 mEq/L (5-15); Aspartate Amino Transferase 30 U/L (14-36); Bilirubin,Total 0.6 mg/dl (0.2-1.3); Blood Urea Nitrogen 23 mg/dl (7-17); Carbon Dioxide 24 mmol/L (22.0-30.0); Estimated Glomerular Filt Rate 59 ml/min (>60); GFR (African American) 71 ML/MIN (>60); Globulin 2.6 g/dL (1.3-3.2); Total Protein,Serum 6.9 g/dl (6.3-8.2)
[2024-07-16 18:40] LABS: Calcium 9.5 mg/dl (8.4-10.2); Cholesterol 232 mg/dl (140-200); Glucose 90 mg/dl (74-100); HDL Cholesterol 78 mg/dl (40-60); Triglycerides 129 mg/dl (30-150); VLDL Cholesterol 26 mg/dL (0-40)
[2024-07-16 18:51] LABS: Direct LDL Cholesterol 124.65 mg/dL (100-129)
[2024-07-16 18:52] LABS: Microalbumin < 6.000 mg/L (0-16.7)
[2024-07-16 18:57] LABS: 25-OH Vitamin D, Total 103 ng/mL (30-100)
[2024-07-16 19:01] LABS: Free T4 (Free Thyroxine) 1.36 ng/dl (0.78-2.19)
[2024-07-16 19:29] LABS: Vitamin B12 329 pg/mL (239-931)
[2024-07-17 03:33] LABS: Thyroid Stimulating Hormone 4.08 uIU/mL (0.465-4.68)
[2024-07-18 05:27] LABS: HBsAg Screen Negative (Negative); HCV Ab Non Reactive (Non Reactive); Hep A Ab, IGM Negative (Negative); Hep B Core Ab, IgM Negative (Negative)
== END 2024-07-16 23:59 | disposition home or self-care (01) ==
LOC: LAB.DROPOF 07-17 09:57
PROVIDERS: PCP Nurse Practitioner; Visit Provider Nurse Practitioner
DX: E11.9 Type 2 diabetes mellitus without complications (principal); I10 Essential (primary) hypertension; E78.5 Hyperlipidemia, unspecified; E55.9 Vitamin D deficiency, unspecified
CPT/HCPCS: 80050; 80053; 80061; 80074; 82043; 82306; 82570; 82607; 84439; 84443; 85025

== ENCOUNTER 2024-12-10 09:24 | Outpatient (CLI) | payer OTHER, SELFPAY ==
[2024-12-10 18:27] LABS: Basophils % 0.2 % (0.1-2.0); Eosinophils # 0.1 K/mm3 (0.0-0.4); Eosinophils % 1.1 % (0.1-12.0); Hematocrit 38.6 % (37.0-47.0); Hemoglobin 12.1 g/dL (12.2-16.2); Lymphocytes # 1.6 K/mm3 (0.7-4.5); Lymphocytes % 25.7 % (10-50); Mean Corpuscular HGB Conc 31.3 g/dL (31.8-35.4); Mean Corpuscular Hemoglobin 30.9 pg (27.0-31.2); Mean Corpuscular Volume 98.5 fl (81-99); Mean Platelet Volume 8.8 fl (7.4-10.4); Monocytes # 0.3 K/mm3 (0.1-1.0); Neutrophils # 4.3 K/mm3 (1.8-7.8); Neutrophils % 68.7 % (37.0-80.0); Platelet Count 279 K/mm3 (142-424); Red Blood Count 3.92 M/mm3 (4.20-5.40); White Blood Count 6.3 K/mm3 (4.8-10.8)
[2024-12-10 19:12] LABS: Albumin Level 3.9 g/dl (3.5-5.0); Chloride 106 mmol/L (98-107); Sodium 135 mmol/L (136-145)
[2024-12-10 19:13] LABS: Potassium 4.8 mmoL/L (3.5-5.1)
[2024-12-10 19:15] LABS: Alanine Aminotransferase 20 U/L (12-78); Albumin/Globulin Ratio 1.9 (1.1-1.8); Alkaline Phosphatase 59 U/L (38-126); Anion Gap 6.8 mEq/L (5-15); Aspartate Amino Transferase 27 U/L (14-36); Bilirubin,Total 0.6 mg/dl (0.2-1.3); Blood Urea Nitrogen 16 mg/dl (7-17); Calcium 8.9 mg/dl (8.4-10.2); Carbon Dioxide 27 mmol/L (22.0-30.0); Cholesterol 178 mg/dl (140-200); Estimated Glomerular Filt Rate 66 ml/min (>60); GFR (African American) 80 ML/MIN (>60); Globulin 2.1 g/dL (1.3-3.2); Glucose 85 mg/dl (74-100); Triglycerides 59 mg/dl (30-150); VLDL Cholesterol 12 mg/dL (0-40)
[2024-12-10 19:16] LABS: Chol/HDL Ratio 1.9 (1-3.5); HDL Cholesterol 93 mg/dl (40-60)
[2024-12-10 19:48] LABS: Direct LDL Cholesterol 74.67 mg/dL (100-129)
[2024-12-10 20:08] LABS: Thyroid Stimulating Hormone 3.04 uIU/mL (0.465-4.68)
[2024-12-10 20:27] LABS: Vitamin B12 402 pg/mL (239-931)
[2024-12-10 20:35] LABS: Creatinine,Urine Random 129 mg/dL (Not Estab.)
[2024-12-10 21:20] LABS: 25-OH Vitamin D, Total 58.2 ng/mL (30-100)
[2024-12-10 22:01] LABS: Microalbumin/Creatinine Ratio 5.2
[2024-12-11 00:07] LABS: Hemoglobin A1C 4.9 % (4.0-6.0)
== END 2024-12-10 23:59 | disposition home or self-care (01) ==
LOC: LAB.DROPOF 12-11 12:09
PROVIDERS: PCP Nurse Practitioner; Visit Provider Nurse Practitioner
DX: E11.9 Type 2 diabetes mellitus without complications (principal); I10 Essential (primary) hypertension; E78.5 Hyperlipidemia, unspecified; E55.9 Vitamin D deficiency, unspecified
CPT/HCPCS: 80053; 80061; 82043; 82306; 82570; 82607; 83036; 84443; 85025